=== PATIENT | male | born 1940 | race Two or more races ===

== ENCOUNTER 2016-09-13 18:04 | Emergency (ER) | payer MEDICARE, MEDICAID ==
[~2016-09-13] VITALS: Ht 160 cm; Wt 73.5 kg
[2016-09-13 18:13] VITALS: BP_SYST 119
[2016-09-13 18:44] LABS: BASOPHILS % (AUTO) 0.6 % (0.0-2.0); EOSINOPHILS # (AUTO) 0.4 K/uL (0.0-0.4); EOSINOPHILS % (AUTO) 4.6 % (0.0-4.0); HEMOGLOBIN 14.3 g/dL (14.0-18.0); LYMPHOCYTES # (AUTO) 2.7 K/uL (1.0-5.5); LYMPHOCYTES % (AUTO) 34.2 % (20.5-51.5); MEAN CORPUSCULAR HEMOGLOBIN 30 pg (27-31); MEAN CORPUSCULAR HGB CONC 34 % (32-36); MEAN CORPUSCULAR VOLUME 89 fL (79.0-98.0); MONOCYTES # (AUTO) 0.4 K/uL (0.0-1.0); MONOCYTES % (AUTO) 5.7 % (1.7-9.3); NEUTROPHILS # (AUTO) 4.3 K/uL (1.8-7.7); NEUTROPHILS % (AUTO) 54.9 % (40.0-70.0); PLATELET COUNT (AUTO) 196 K/uL (130-430); RED BLOOD CELL COUNT(AUTO) 4.74 MIL/uL (4.2-6.2); RED CELL DISTRIBUTION WIDTH 12.4 % (9.0-15.0); WHITE BLOOD COUNT (AUTO) 7.8 K/uL (4.8-10.8)
[2016-09-13 18:49] LABS: CALCIUM 9.1 mg/dL (8.4-11.0); CHLORIDE 102 mmol/L (98-107); CREATININE 1.21 mg/dL (0.55-1.30); GLUCOSE 145 mg/dL (70-99); POTASSIUM 3.9 mmol/L (3.5-5.1); SODIUM SERUM 136 mmol/L (136-145); UREA NITROGEN, BLOOD 17 mg/dL (8-21)
[2016-09-13 18:50] LABS: ANION GAP < 3 (5-15)
[2016-09-13 18:54] LABS: ALANINE AMINOTRANSFERASE 21 U/L (12-78); ALBUMIN 3.8 g/dL (3.4-4.8); ASPARTATE AMINOTRANSFERASE 21 U/L (10-37); TOTAL BILIRUBIN 0.5 mg/dL (0.0-1.0); TOTAL PROTEIN, SERUM 7.9 g/dL (6.4-8.3); URIC ACID 4.4 mg/dL (2.4-7.0)
--- NOTE | 2016-09-13 19:00 | NUR ---
Patient to ER bed 05 to gown for evaluation. Side rails up. Report given to Cup Machine Operator
--- NOTE | 2016-09-13 19:02 | NUR ---
PT. TO ER AAOx4 C/O left knee pain FOR 1 year states it got worse today, / no meds taken, states no sob, no chest pain, follows commands, able to move his extremities FROM, cap refil < 3 secs on affectes leg
--- NOTE | 2016-09-13 19:05 | NUR ---
DR. SAWANT AT BEDSIDE EXAMINING THE PT.
[2016-09-13 19:35] VITALS: BP_SYST 121
--- NOTE | 2016-09-13 19:35 | NUR ---
Patient given written and verbal discharge instructions and verbalizes understanding. ER MD dr. kapoor discussed with patient the results and treatment provided. Patient in stable condition. ID arm band removed. Rx of ibuprofen given. Patient educated on pain management and to follow up with PMD. Pain Scale 0/10 Opportunity for questions provided and answered.
== END 2016-09-13 19:35 | disposition home or self-care (01) ==
LOC: SED 18:04
DX: S83.92XA Sprain of unspecified site of left knee, initial encounter (principal); X58.XXXA Exposure to other specified factors, initial encounter; Y93.66 Activity, soccer; Y92.39 Other specified sports and athletic area as the place of occurrence of the external cause; Y99.8 Other external cause status
CPT/HCPCS: 36415; 73564; 80053; 84550-TC; 85025; 99285

== ENCOUNTER 2017-05-29 13:21 | Emergency (ER) | payer MEDICARE, MEDICAID ==
[~2017-05-29] VITALS: Ht 167.6 cm; Wt 73.5 kg
[2017-05-29 13:48] VITALS: BP_SYST 156
[2017-05-29] MEDS: ALBUTEROL SULFATE 0.083% 2.5 MG/3 ML VIAL.NEB INH ONE (16:09)
[2017-05-29 16:35] VITALS: BP_SYST 148
== END 2017-05-29 16:35 | disposition home or self-care (01) ==
LOC: SED 13:21
DX: J40 Bronchitis, not specified as acute or chronic (principal)
CPT/HCPCS: 94640; 99283